=== PATIENT | female | born 1980 | race Hispanic/Latino ===

== ENCOUNTER 2017-12-29 14:26 | Emergency (ER) | payer OTHER ==
[2017-12-29] MEDS ORDERED: Sodium Chloride 0.9% 1,000 ML IV SCH (16:00)
[2017-12-29 16:17] LABS: BASO # 0.1 K/uL (0.0-0.2); BASO % 1.1 % (0.0-2.0); EOS # 0.4 K/uL (0.0-0.7); EOS % 4.6 % (0.0-4.0); HEMOGLOBIN 13.2 g/dL (12.0-16.0); LYMPH # 2.7 K/uL (1.0-4.3); LYMPH % 32.3 % (20.0-40.0); MEAN CELL VOLUME 90.8 fl (81.0-99.0); MEAN CORPUSCULAR HEMOGLOBIN 30.8 pg (27.0-31.0); MEAN CORPUSCULAR HGB CONC 33.9 g/dL (33.0-37.0); MEAN PLATELET VOLUME 8.9 fl (7.2-11.7); MONO # 0.4 K/uL (0.0-0.8); MONO % 5.3 % (0.0-10.0); NEUT # 4.7 K/uL (1.8-7.0); NEUT % 56.7 % (50.0-75.0); NRBC % 0.1 % (0.0-0.0); RBC 4.29 Mil/uL (3.80-5.20); RED CELL DISTRIBUTION WIDTH 13.1 % (11.5-14.5); WHITE BLOOD COUNT 8.3 K/uL (4.8-10.8)
[2017-12-29] MEDS ORDERED: Sodium Chloride 0.9% 50 ML IV ONE (16:20)
[2017-12-29] MEDS ORDERED: Iohexol 300 100 ML IJ ONE (16:20)
[2017-12-29 16:23] LABS: ALB/GLOB RATIO 1.5 (1.0-2.1); ALBUMIN 4.3 g/dL (3.5-5.0); ALT/SGPT 25 U/L (9-52); AST/SGOT 25 U/L (14-36); BLOOD UREA NITROGEN 15 mg/dl (7-17); CALCIUM 9.7 mg/dL (8.4-10.2); GFR AFRICAN-AMERICAN > 60; GFR NON-AFRICAN AMERICAN > 60; LIPASE 132 U/L (23-300)
--- NOTE | 2017-12-29 16:56 | ED PDOC ---
HPI: Abdomen Time Seen by Provider: 12/29/17 15:12 Chief Complaint (Nursing): Abdominal Pain Chief Complaint (Provider): Abdominal Pain History Per: Patient History/Exam Limitations: no limitations Onset/Duration Of Symptoms: Hrs (today) Current Symptoms Are (Timing): Still Present Additional Complaint(s): Patient complains of abdominal pain described as sudden onset RLQ pain, non- radiating, waxing and waning, associated with worse eating, nausea, and anorexia. Otherwise: (-) vomiting, (-) diarrhea, (-) fever, (-) melena, (-) hematochezia, (-) urinary symptoms. Has no history of prior abdominal surgery. PMD: [place] Past Medical History Reviewed: Historical Data, Nursing Documentation, Vital Signs Vital Signs: Last Vital Signs Temp 98.2 F 12/29/17 14:47 Pulse 76 12/29/17 14:47 Resp 18 12/29/17 14:47 BP 134/95 H 12/29/17 14:47 Pulse Ox 98 12/29/17 19:36 - Medical History PMH: No Chronic Diseases - Surgical History Surgical History: No Surg Hx - Family History Family History: States: Unknown Family Hx - Immunization History Hx Tetanus Toxoid Vaccination: No Hx Influenza Vaccination: No Hx Pneumococcal Vaccination: No - Allergies Allergies/Adverse Reactions: Allergies Allergy/AdvReac Type Severity Reaction Status Date / Time No Known Allergies Allergy Verified 12/29/17 14:47 Review of Systems ROS Statement: Except As Marked, All Systems Reviewed And Found Negative Constitutional: Positive for: Other (loss of appetite) Gastrointestinal: Positive for: Nausea, Abdominal Pain (RLQ) Physical Exam - Reviewed Nursing Documentation Reviewed: Yes Vital Signs Reviewed: Yes - Physical Exam Comments: GENERAL APPEARANCE : Patient is awake, alert, oriented x 3, in no acute distress. SKIN: Warm, dry; (-) cyanosis. EYES: (-) conjunctival pallor, (-) scleral icterus. ENMT: Mucous membranes dry. NECK: (-) tenderness, (-) stiffness, (-) lymphadenopathy. CHEST AND RESPIRATORY: (-) rales, (-) rhonchi, (-) wheezes; breath sounds equal bilaterally. HEART AND CARDIOVASCULAR: (-) irregularity; (-) murmur, (-) gallop. ABDOMEN AND GI: (-) distention. Bowel sounds active; (+) mild tenderness in RLQ. (-) guarding, (-) rebound, (-) palpable masses, (-) CVA tenderness. EXTREMITIES: (-) deformity, (-) edema, (+) distal pulses. NEURO AND PSYCH: Mental status as above; (-) focal findings. - Laboratory Results Result Diagrams: 12/29/17 16:00 12/29/17 16:00 - ECG O2 Sat by Pulse Oximetry: 98 (RA) Pulse Ox Interpretation: Normal Medical Decision Making Medical Decision Making: Time: 15:57 Initial Impression: Abdominal Pain Initial Plan: --CT Abdomen & Pelvis --CMP --Lipase --CBC Uhcg (-) UA (-) Labs reviewed and are wnl. On re-evaluation, patient reports no new complaints at this time. On exam, patient remains AAOx3, in no acute distress. Lungs clear to auscultation, cardiac RRR, abdomen soft, non-tender, repeat neuro exam shows minimal RLQ tenderness. Patient went to CT, results are pending. Case endorsed to KELSEY Patel pending CT results, re-evaluation and final disposition. Scribe Attestation: Documented by Aman Dodd, acting as a scribe for Katia Amaya PA-C Provider Scribe Attestation: All medical record entries made by the Scribe were at my direction and personally dictated by me. I have reviewed the chart and agree that the record accurately reflects my personal performance of the history, physical exam, medical decision making, and the department course for this patient. I have also personally directed, reviewed, and agree with the discharge instructions and disposition. Disposition - Clinical Impression Clinical Impression: Abdominal pain - Patient ED Disposition Is Patient to be Admitted: Transfer of Care (Case endorsed to KELSEY Patel pending CT results, re-evaluation and final disposition.) - Disposition Disposition Time: 20:00 Condition: STABLE Forms: [facility] ([place])
[2017-12-29 20:09] VITALS: BP 125/85; PULSE 85; RESP 14; TEMP 98.3; O2SAT 97
--- NOTE | 2017-12-29 20:17 | ED PDOC ---
- Laboratory Results Result Diagrams: 12/29/17 16:00 12/29/17 16:00 - ECG O2 Sat by Pulse Oximetry: 97 Medical Decision Making Medical Decision Making: Case was signed out to typewriter repairer from KELSEY Amaya pending CT abdomen and pelvis. CT: IMPRESSION: 1. Normal appendix. 2. Apparent mild wall thickening of most of the colon may be artifactual due to limited luminal distention but differential diagnosis also includes an infectious or inflammatory colitis. 3. Multiple borderline enlarged right lower quadrant mesenteric lymph nodes are nonspecific but raise the possibility of mesenteric adenitis. Patient is aware of all diagnostic testing results. Patient feels better, all questions answered. Patient given prescriptions for Zofran and Bentyl. Advised clear liquids, bland diet and GI follow-up, referral provided. Disposition - Clinical Impression Clinical Impression: Abdominal pain, Colitis, Mesenteric adenitis - POA Present On Arrival: None - Disposition Referrals: Reece Daniels MD, PhD [Staff Provider] - Disposition: Routine/Home Disposition Time: 20:57 Condition: STABLE Additional Instructions: Drink clear fluids, follow bland diet and advance activity as tolerated. Take prescription meds as directed as needed. Follow-up with primary doctor or government clerk for any persistent symptoms. Prescriptions: Dicyclomine [Bentyl] 10 mg PO QID PRN #15 cap PRN Reason: Gi Distress Ondansetron [Zofran Odt] 4 mg PO ASDIR PRN #15 odt PRN Reason: Nausea/Vomiting Instructions: Colitis (ED), Mesenteric Adenitis (ED) Forms: [facility] ([place]rian)
--- NOTE | 2017-12-30 10:11 | CT ---
PROCEDURE: CT scan abdomen pelvis 12/29/2017 HISTORY: RLQ pain, r/o appy COMPARISON: No prior study available comparison TECHNIQUE: Contiguous axial images of the abdomen and pelvis performed following intravenous injection of approximately 90 cc Omnipaque 300 contrast material. . Additional 2 dimensional sagittal and coronal reformats generated. This CT exam was performed using one or more of the following dose reduction techniques: Automated exposure control, adjustment of the mA and/or kV according to patient size, and/or use of iterative reconstruction technique. Radiation dose: Total exam DLP = 508.76 mGy-cm. FINDINGS: LOWER THORAX: Mild passive atelectasis both posterior the lung zuñiga. No focal consolidation effusion or basilar pneumothorax. Heart size within range of normal. There appears to be tiny hiatal hernia. LIVER: Liver is borderline enlarged measuring just over 18 cm in CC dimension. Mild diffuse fatty hepatic infiltration. Portal and splenic veins are opacified. GALLBLADDER AND BILE DUCTS: Gallbladder is physiologically distended. No evidence of intraluminal gallbladder calculi. . PANCREAS: Unremarkable. No mass. No ductal dilatation. SPLEEN: Unremarkable. No splenomegaly. ADRENALS: There are no adrenal lesions seen. . KIDNEYS AND URETERS: Un the kidneys demonstrate symmetric nephrograms. No evidence of nephrolithiasis or hydronephrosis. BLADDER: Grossly unremarkable. REPRODUCTIVE: The endometrial canal slightly thickened which could be due to laboratory secretary phase of the endometrial cycle. Consider followup pelvic ultrasound for further evaluation if indicated. APPENDIX: Normal-appearing appendix best seen on axial series 3, image number [id number] BOWEL: Evaluation of the bowel is somewhat limited due to the lack of oral contrast material. Stomach is incompletely distended which presumably accounts for thick-walled appearance. Gastritis not excluded. No evidence acute mechanical small bowel obstruction. Moderate amount of stool seen throughout the colon particularly the cecum suggesting mild fecal retention/ constipation. Few scattered colonic diverticula are also noted. . Incidental note made of short segments of mild wall thickening in the proximal descending colon which may be secondary to incomplete distention and peristalsis as well as unopacified bowel. Possibility of a localized colitis cannot be completely excluded. Clinical correlation recommended. PERITONEUM: Unremarkable. No fluid collection. No free air. Small fat containing umbilical hernia. LYMPH NODES: There are a few small nonspecific lymph nodes right lower quadrant of the abdomen; rule out mesenteric adenitis. VASCULATURE: Unremarkable. No aortic aneurysm. BONES: No fracture or destructive lesion. OTHER FINDINGS: None. IMPRESSION: No evidence of acute appendicitis. . Note made of a short segments of wall thickening proximal descending colon likely due to incomplete distention and peristalsis as well as unopacified bowel however the possibility of a localized colitis cannot be completely excluded clinical correlation recommended. There are a few small nonspecific lymph nodes right lower quadrant of the abdomen; rule out mesenteric adenitis. Borderline hepatomegaly with mild fatty hepatic infiltration.
== END 2017-12-29 21:10 | disposition home or self-care (01) ==
LOC: H.ER 14:26
DX: K52.9 Noninfective gastroenteritis and colitis, unspecified (principal); I88.0 Nonspecific mesenteric lymphadenitis
CPT/HCPCS: 74177; 80053; 81025; 83690; 85025; 96360; 99284; J7040; Q9967